=== PATIENT | female | born 1945 | race Caucasian/White ===

== ENCOUNTER 2019-03-18 07:13 | Inpatient (IN) ==
[2019-03-18] MEDS ORDERED: SODIUM CHLORIDE 0.9% 1,000 ML IV STA (07:50)
[2019-03-18] MEDS ORDERED: ACETAMINOPHEN 325 MG TABLET PO PRN (08:45)
[2019-03-18] MEDS ORDERED: ALBUTEROL/IPRATROPIUM 3 ML NEB RESP TX PRN (08:58)
[2019-03-18] MEDS ORDERED: KETOROLAC 15 MG/1 ML VIAL IV PRN (08:58)
[2019-03-18] MEDS ORDERED: DEXAMETHASONE PO SCH (09:15)
[2019-03-18] MEDS: LACTATED RINGERS 1,000 ML IV SCH ×2 (11:45→22:03)
[2019-03-18] MEDS: ONDANSETRON 4 MG/2 ML VIAL IV PRN (14:58)
[2019-03-18] MEDS: HYDROmorphone 2 MG/1 ML VIAL IV PRN ×2 (14:59→18:28)
[2019-03-18] MEDS: CALCIUM (CARBONATE)/VITAMIN D 600 MG-400 UNIT TABLET PO SCH (21:59)
[2019-03-18] MEDS: FAMOTIDINE 20 MG/2 ML VIAL IV SCH (22:01)
[2019-03-19] MEDS: LACTATED RINGERS 1,000 ML IV SCH ×4 (01:00→18:18)
[2019-03-19] MEDS: HYDROmorphone 2 MG/1 ML VIAL IV PRN ×5 (01:24→21:23)
[2019-03-19] MEDS: ONDANSETRON 4 MG/2 ML VIAL IV PRN ×4 (01:37→21:24)
[2019-03-19 05:21] LABS: Basophils # 0.1 10*3/uL (0.0-0.2); Basophils % 0.5 % (0.0-0.8); Eosinophils % 0.3 % (0.00-10.9); Hematocrit 38.4 VOL% (35.7-47.0); Hemoglobin 12.1 GM/DL (12.0-16.0); Immature Granulocytes % 0.7 %; Immature Granulocytes Absolute 0.08 #; Lymphocytes # 0.8 10*3/uL (1.4-4.0); Lymphocytes % 6.7 % (21.3-54.2); Mean Corpuscular HGB Conc 31.5 GM/DL (32-36); Mean Corpuscular Volume 107.9 FL (87-102); Mean Platelet Volume 14.4 FL (9.6-12.0); Monocytes % 14.7 % (1.7-12.7); Neutrophils % 77.1 % (38.7-73.9); Platelet Count 140 T/CUMM (130-400); Red Blood Count 3.56 MC/CUMM (3.8-5.5); Red Cell Distribution Width 14.5 % (9.3-17.3); White Blood Count 11.8 T/CUMM (4-12)
[2019-03-19 05:43] LABS: Albumin 3.2 G/DL (3.4-5.0); Bilirubin,Total 0.6 MG/DL (0.2-1.0); Calcium 6.8 MG/DL (8.5-10.1); Osmolality,Calculated 285.8 MOS/KG (273-304); Total Protein 5.7 G/DL (6.4-8.3)
[2019-03-19] MEDS ORDERED: Lenalidomide [Revlimid] 25 MG PO SCH (09:00)
[2019-03-19] MEDS: CALCIUM (CARBONATE)/VITAMIN D 600 MG-400 UNIT TABLET PO SCH ×2 (09:22→22:42)
[2019-03-19] MEDS: ASPIRIN EC 81 MG TABLET PO SCH (09:22)
[2019-03-19] MEDS: FAMOTIDINE 20 MG/2 ML VIAL IV SCH ×2 (09:23→22:42)
[2019-03-19] MEDS: POTASSIUM CHLORIDE RIDER 10 MEQ in PREMIX 1 EACH IV PRN ×4 (09:36→21:21)
[2019-03-19] MEDS: SUCRALFATE 1 GM/10 ML UDCUP NG SCH ×4 (13:22→21:58)
[2019-03-20] MEDS: LACTATED RINGERS 1,000 ML IV SCH ×4 (01:00→17:00)
[2019-03-20] MEDS: HYDROmorphone 2 MG/1 ML VIAL IV PRN ×4 (01:47→22:09)
[2019-03-20] MEDS: ONDANSETRON 4 MG/2 ML VIAL IV PRN ×2 (04:20→10:21)
[2019-03-20 05:21] LABS: Basophils # 0.1 10*3/uL (0.0-0.2); Basophils % 0.5 % (0.0-0.8); Eosinophils % 0.3 % (0.00-10.9); Hematocrit 37.6 VOL% (35.7-47.0); Hemoglobin 12.2 GM/DL (12.0-16.0); Immature Granulocytes % 0.4 %; Immature Granulocytes Absolute 0.04 #; Lymphocytes # 0.8 10*3/uL (1.4-4.0); Lymphocytes % 7.2 % (21.3-54.2); Mean Corpuscular HGB Conc 32.4 GM/DL (32-36); Mean Corpuscular Volume 105.6 FL (87-102); Mean Platelet Volume 14.4 FL (9.6-12.0); Monocytes % 15.6 % (1.7-12.7); Platelet Count 125 T/CUMM (130-400); Red Blood Count 3.56 MC/CUMM (3.8-5.5); Red Cell Distribution Width 14.2 % (9.3-17.3); White Blood Count 10.4 T/CUMM (4-12)
[2019-03-20 05:50] LABS: Calcium 7.9 MG/DL (8.5-10.1); Osmolality,Calculated 277.4 MOS/KG (273-304)
[2019-03-20 05:54] LABS: Lymphocytes 7 % (20-55); Metamyelocytes 1 %; Platelet Estimate Decreased; Polychromasia Few; Segmented Neutrophils 86 % (50-85); Total Cells Counted 100
[2019-03-20] MEDS: SUCRALFATE 1 GM/10 ML UDCUP NG SCH ×3 (06:37→19:43)
[2019-03-20] MEDS: ASPIRIN EC 81 MG TABLET PO SCH (09:01)
[2019-03-20] MEDS: CALCIUM (CARBONATE)/VITAMIN D 600 MG-400 UNIT TABLET PO SCH ×2 (09:02→22:30)
[2019-03-20] MEDS: FAMOTIDINE 20 MG/2 ML VIAL IV SCH ×2 (09:05→22:15)
[2019-03-20] MEDS ORDERED: cefOXitin 2,000 MG in SYRINGE 1 EACH IV ONE (09:42)
[2019-03-20] MEDS: KETOROLAC 15 MG/1 ML VIAL IM SCH ×3 (10:29→22:18)
[2019-03-21] MEDS: SUCRALFATE 1 GM/10 ML UDCUP NG SCH ×4 (00:53→18:03)
[2019-03-21] MEDS: HYDROmorphone 2 MG/1 ML VIAL IV PRN (03:53)
[2019-03-21] MEDS: KETOROLAC 15 MG/1 ML VIAL IM SCH ×4 (03:58→21:48)
[2019-03-21 05:04] LABS: Basophils # 0.1 10*3/uL (0.0-0.2); Eosinophils # 0.1 10*3/uL (0.0-0.87); Eosinophils % 1.3 % (0.00-10.9); Hematocrit 34.2 VOL% (35.7-47.0); Hemoglobin 11.4 GM/DL (12.0-16.0); Immature Granulocytes % 0.4 %; Immature Granulocytes Absolute 0.03 #; Lymphocytes # 0.8 10*3/uL (1.4-4.0); Lymphocytes % 9.9 % (21.3-54.2); Mean Corpuscular HGB Conc 33.3 GM/DL (32-36); Mean Corpuscular Volume 104.6 FL (87-102); Mean Platelet Volume 13.7 FL (9.6-12.0); Monocytes % 18.2 % (1.7-12.7); Neutrophils % 69.2 % (38.7-73.9); Platelet Count 114 T/CUMM (130-400); Red Blood Count 3.27 MC/CUMM (3.8-5.5); Red Cell Distribution Width 13.8 % (9.3-17.3); White Blood Count 8.3 T/CUMM (4-12)
[2019-03-21 05:26] LABS: Albumin 2.8 G/DL (3.4-5.0); Bilirubin,Total 0.8 MG/DL (0.2-1.0); Calcium 7.5 MG/DL (8.5-10.1); Osmolality,Calculated 280.3 MOS/KG (273-304); Total Protein 5.2 G/DL (6.4-8.3)
[2019-03-21] MEDS: LACTATED RINGERS 1,000 ML IV SCH (06:19)
[2019-03-21 06:31] LABS: Eosinophils 2 % (0-10); Lymphocytes 10 % (20-55); Segmented Neutrophils 76 % (50-85); Total Cells Counted 100
[2019-03-21 06:32] LABS: Hypochromasia Slight; Macrocytosis Slight
[2019-03-21 06:33] LABS: Atypical Lymphocytes Few; Platelet Estimate Decreased
[2019-03-21] MEDS ORDERED: MAGNESIUM SULF RIDER 2 GM in PREMIX 1 EACH IV ONE (09:00)
[2019-03-21] MEDS ORDERED: POTASSIUM CHLORIDE 20 MEQ/15 ML UDCUP NG ONE (09:00)
[2019-03-21] MEDS: CALCIUM (CARBONATE)/VITAMIN D 600 MG-400 UNIT TABLET PO SCH ×2 (09:21→21:48)
[2019-03-21] MEDS: ASPIRIN EC 81 MG TABLET PO SCH (09:21)
[2019-03-21] MEDS: FAMOTIDINE 20 MG/2 ML VIAL IV SCH ×2 (09:30→21:54)
[2019-03-21] MEDS: ONDANSETRON 4 MG/2 ML VIAL IV PRN (13:08)
[2019-03-21] MEDS: POTASSIUM CHLORIDE INJ 20 MEQ in LACTATED RINGERS 1,000 ML IV SCH ×3 (13:09→21:49)
[2019-03-22] MEDS: SUCRALFATE 1 GM/10 ML UDCUP NG SCH ×4 (00:35→17:33)
[2019-03-22] MEDS: ONDANSETRON 4 MG/2 ML VIAL IV PRN ×2 (01:50→10:38)
[2019-03-22] MEDS: HYDROmorphone 2 MG/1 ML VIAL IV PRN (01:54)
[2019-03-22] MEDS: KETOROLAC 15 MG/1 ML VIAL IM SCH ×4 (04:18→23:20)
[2019-03-22 05:45] LABS: Calcium 7.7 MG/DL (8.5-10.1); Osmolality,Calculated 276.4 MOS/KG (273-304)
[2019-03-22] MEDS: POTASSIUM CHLORIDE INJ 20 MEQ in LACTATED RINGERS 1,000 ML IV SCH ×3 (06:42→20:35)
[2019-03-22] MEDS: POTASSIUM CHLORIDE RIDER 10 MEQ in PREMIX 1 EACH IV PRN (08:05)
[2019-03-22] MEDS: ASPIRIN EC 81 MG TABLET PO SCH (08:24)
[2019-03-22] MEDS: CALCIUM (CARBONATE)/VITAMIN D 600 MG-400 UNIT TABLET PO SCH ×2 (08:24→20:34)
[2019-03-22] MEDS: FAMOTIDINE 20 MG/2 ML VIAL IV SCH ×2 (10:37→20:35)
[2019-03-22] MEDS ORDERED: cefOXitin 2,000 MG in SYRINGE 1 EACH IV ONE (11:30)
[2019-03-22] MEDS ORDERED: LACTATED RINGERS 1,000 ML IV SCH (13:30)
[2019-03-22] MEDS ORDERED: ISOSULFAN BLUE 5 ML VIAL SUBCUT ONE (13:55)
[2019-03-22] MEDS ORDERED: MICROFIBRILLAR COLLAGEN POWDER 1 GM CAN TOP ONE (14:12)
[2019-03-22] MEDS ORDERED: PROPOFOL 200 MG/20 ML VIAL IV ONE (14:53)
[2019-03-22] MEDS ORDERED: KETOROLAC 30 MG/1 ML VIAL ONE (14:54)
[2019-03-22] MEDS ORDERED: EPINEPHrine 1 MG/ML VIAL ONE (14:54)
[2019-03-22] MEDS ORDERED: ONDANSETRON 4 MG/2 ML VIAL ONE (14:54)
[2019-03-22] MEDS ORDERED: BUPIVACAINE 0.5% 50 ML VIAL ONE (14:54)
[2019-03-22] MEDS ORDERED: DEXAMETHASONE 4 MG/1 ML VIAL ONE (14:54)
[2019-03-22] MEDS ORDERED: MIDAZOLAM 2 MG/2 ML VIAL ONE (14:54)
[2019-03-22] MEDS ORDERED: fentaNYL 100 MCG/2 ML VIAL ONE (14:54)
[2019-03-22] MEDS ORDERED: NEOSTIGMINE 10 MG/10 ML VIAL ONE (14:55)
[2019-03-22] MEDS ORDERED: LACTATED RINGERS 1,000 ML IV ONE (14:55)
[2019-03-22] MEDS ORDERED: ROCURONIUM 100 MG/10 ML VIAL IV ONE (14:55)
[2019-03-22] MEDS ORDERED: GLYCOPYRROLATE 0.4 MG/2 ML VIAL ONE (14:55)
[2019-03-22 15:14] LABS: Apearance,Urine CLEAR (Clear); Bacteria,Urine Occasional /HPF (Few); Bilirubin,Urine Negative (Negative); Blood, Urine Small mg/dL (Negative); Glucose,Urine (UA) 50 mg/dL (Negative); Hyaline Casts,Urine 1 /LPF (0-3); Ketones,Urine 80 mg/dL (Negative); Mucus,Urine Occasional /LPF (Occasional); Nitrite,Urine Negative (Negative); Protein,Urine Negative; RBC,Urine 5 /HPF (0-4); Urine Color Yellow (Yellow); Urine Specific Gravity 1.014 (1.001-1.035); Urine Urobilinogen < 2.0 EU/DL (0.2-1.0); WBC,Urine <1 /HPF (0-6)
[2019-03-23] MEDS: SUCRALFATE 1 GM/10 ML UDCUP NG SCH ×4 (01:47→18:26)
[2019-03-23] MEDS: KETOROLAC 15 MG/1 ML VIAL IM SCH ×4 (05:16→23:08)
[2019-03-23] MEDS: POTASSIUM CHLORIDE INJ 20 MEQ in LACTATED RINGERS 1,000 ML IV SCH ×3 (05:19→21:24)
[2019-03-23 05:22] LABS: Basophils % 0.1 % (0.0-0.8); Hematocrit 34.1 VOL% (35.7-47.0); Hemoglobin 11.3 GM/DL (12.0-16.0); Immature Granulocytes % 0.6 %; Immature Granulocytes Absolute 0.05 #; Lymphocytes # 0.7 10*3/uL (1.4-4.0); Mean Corpuscular HGB Conc 33.1 GM/DL (32-36); Mean Corpuscular Volume 104.3 FL (87-102); Mean Platelet Volume 13.8 FL (9.6-12.0); Neutrophils % 73.3 % (38.7-73.9); Platelet Count 106 T/CUMM (130-400); Red Blood Count 3.27 MC/CUMM (3.8-5.5); Red Cell Distribution Width 13.6 % (9.3-17.3); White Blood Count 9.1 T/CUMM (4-12)
[2019-03-23 06:05] LABS: Albumin 2.4 G/DL (3.4-5.0); Bilirubin,Total 0.7 MG/DL (0.2-1.0); Calcium 7.2 MG/DL (8.5-10.1); Osmolality,Calculated 275.5 MOS/KG (273-304); Total Protein 4.7 G/DL (6.4-8.3)
[2019-03-23 06:26] LABS: Eosinophils 1 % (0-10); Lymphocytes 13 % (20-55); Segmented Neutrophils 69 % (50-85); Total Cells Counted 100
[2019-03-23 06:27] LABS: Anisocytosis 1+; Platelet Estimate Decreased
[2019-03-23] MEDS: FAMOTIDINE 20 MG/2 ML VIAL IV SCH ×2 (09:20→21:22)
[2019-03-23] MEDS: ASPIRIN EC 81 MG TABLET PO SCH (09:21)
[2019-03-23] MEDS: CALCIUM (CARBONATE)/VITAMIN D 600 MG-400 UNIT TABLET PO SCH ×2 (09:21→21:24)
[2019-03-23] MEDS ORDERED: diphenhydrAMINE 50 MG/1 ML VIAL IV PRN (19:49)
[2019-03-24] MEDS: SUCRALFATE 1 GM/10 ML UDCUP NG SCH ×4 (02:21→18:20)
[2019-03-24] MEDS: KETOROLAC 15 MG/1 ML VIAL IM SCH ×4 (04:43→23:11)
[2019-03-24] MEDS: POTASSIUM CHLORIDE INJ 20 MEQ in LACTATED RINGERS 1,000 ML IV SCH ×2 (06:23→10:20)
[2019-03-24] MEDS: CALCIUM (CARBONATE)/VITAMIN D 600 MG-400 UNIT TABLET PO SCH ×2 (09:35→20:46)
[2019-03-24] MEDS: ASPIRIN EC 81 MG TABLET PO SCH (09:35)
[2019-03-24] MEDS: FAMOTIDINE 20 MG/2 ML VIAL IV SCH ×2 (10:00→20:50)
[2019-03-24] MEDS: ONDANSETRON 4 MG/2 ML VIAL IV PRN (23:23)
[2019-03-25] MEDS: POTASSIUM CHLORIDE INJ 20 MEQ in LACTATED RINGERS 1,000 ML IV SCH (00:51)
[2019-03-25] MEDS: ACYCLOVIR 200 MG CAPSULE PO SCH (01:25)
[2019-03-25] MEDS: SUCRALFATE 1 GM/10 ML UDCUP NG SCH ×2 (01:26→07:16)
[2019-03-25 04:27] LABS: Basophils # 0.1 10*3/uL (0.0-0.2); Basophils % 1.1 % (0.0-0.8); Eosinophils # 0.4 10*3/uL (0.0-0.87); Eosinophils % 6.4 % (0.00-10.9); Hematocrit 34.5 VOL% (35.7-47.0); Hemoglobin 11.4 GM/DL (12.0-16.0); Immature Granulocytes % 0.5 %; Immature Granulocytes Absolute 0.03 #; Lymphocytes # 1.1 10*3/uL (1.4-4.0); Mean Corpuscular Volume 103.9 FL (87-102); Mean Platelet Volume 13.2 FL (9.6-12.0); Monocytes % 20.2 % (1.7-12.7); Neutrophils % 54.8 % (38.7-73.9); Platelet Count 106 T/CUMM (130-400); Red Blood Count 3.32 MC/CUMM (3.8-5.5); Red Cell Distribution Width 13.6 % (9.3-17.3); White Blood Count 6.3 T/CUMM (4-12)
[2019-03-25 05:03] LABS: Osmolality,Calculated 276.4 MOS/KG (273-304)
[2019-03-25 05:07] LABS: Eosinophils 6 % (0-10); Hypochromasia 1+; Lymphocytes 19 % (20-55); Platelet Estimate Decreased; Segmented Neutrophils 62 % (50-85); Total Cells Counted 100
[2019-03-25] MEDS: KETOROLAC 15 MG/1 ML VIAL IM SCH (06:43)
[2019-03-25 07:55] VITALS: BP 142/74
[2019-03-25] MEDS: ASPIRIN EC 81 MG TABLET PO SCH (08:26)
[2019-03-25] MEDS: CALCIUM (CARBONATE)/VITAMIN D 600 MG-400 UNIT TABLET PO SCH (08:26)
[2019-03-25] MEDS: ONDANSETRON 4 MG/2 ML VIAL IV PRN (08:26)
[2019-03-25] MEDS: FAMOTIDINE 20 MG/2 ML VIAL IV SCH (08:27)
== END 2019-03-25 13:06 | disposition home or self-care (01) | DRG 336 ==
LOC: EDBD → EDUNIT# → N.ED 07:13 → N.EDINP 08:45 → N.3E 12:56
PROVIDERS: ADMIT Surgery; ATTEND Surgery